=== PATIENT | male | born 1985 | race American Indian/Alaskan Native ===

== ENCOUNTER 2019-10-16 10:26 | Emergency (ER) | payer SELFPAY ==
[~2019-10-16] VITALS: Ht 167.6 cm; Wt 70.3 kg
[2019-10-16 10:29] VITALS: BP 140/90
--- NOTE | 2019-10-16 10:29 | NUR ---
Patient ambulated to bed 7. RN evaluating patient at bedside.
--- NOTE | 2019-10-16 10:37 | NUR ---
PT C/O PENILE DISCHARGE X2 DAY WITH DISCOMFORT AND BURNING SENSATION OF URINATION. DENIES SICK CONTACT WITH COVID PT. PATIENT STATES PAIN OF 0/10 AT THIS TIME; VSS; PATIENT POSITIONED FOR COMFORT; HOB ELEVATED; BEDRAILS UP X1; BED DOWN. ER MD MADE AWARE OF PT STATUS.
[2019-10-16] MEDS ORDERED: cefTRIAXone 250 MG in LIDOCAINE MPF 1% 0.9 ML IM ONE (11:00)
[2019-10-16] MEDS ORDERED: AZITHROMYCIN 250 MG TAB PO ONE (11:00)
[2019-10-16] MEDS ORDERED: LIDOCAINE MPF 1% 5 ML ONE (11:05)
[2019-10-16] MEDS ORDERED: cefTRIAXone 250 MG VIAL ONE (11:05)
[2019-10-16 11:35] VITALS: BP 122/78
--- NOTE | 2019-10-16 11:35 | NUR ---
Patient discharged with v/s stable. Written and verbal after care instructions given and explained. Patient verbalized understanding. Ambulatory with steady gait. All questions addressed prior to discharge. Advised to follow up with PMD.
[2019-10-18 06:07] LABS: CHLAMYDIA TRACHOMATIS AMP DNA Negative (Negative)
--- NOTE | 2019-10-18 20:50 | NUR ---
PT POSITIVE GONORRHOEAE RESULTS-SENT TO INFECTION CONTROL AND HOUSE SUP
== END 2019-10-16 11:35 | disposition home or self-care (01) ==
LOC: MED 10:26
DX: R36.9 Urethral discharge, unspecified (principal); R03.0 Elevated blood-pressure reading, without diagnosis of hypertension; Z11.3 Encounter for screening for infections with a predominantly sexual mode of transmission
CPT/HCPCS: 36415; 81002; 87491; 96372; 99283; J0696; J2001

== ENCOUNTER 2023-01-14 15:44 | Emergency (ER) | payer OTHER ==
[~2023-01-14] VITALS: Ht 167.6 cm; Wt 77.7 kg
[2023-01-14 16:07] VITALS: BP 148/78; PULSE 110; RESP 18; TEMP 97.7; O2SAT 97
[2023-01-14 17:28] LABS: BILIRUBIN,URINE NEGATIVE (NEGATIVE); BLOOD, URINE NEGATIVE (NEGATIVE); COLOR,URINE YELLOW (YELLOW); LEUKOCYTE ESTERASE ,URINE 1+ (NEGATIVE); NITRITE, URINE NEGATIVE (NEGATIVE); PH,URINE 6.5 (5.0-9.0); PROTEIN,URINE NEGATIVE (NEGATIVE); UGLUCOSE NEGATIVE (NEGATIVE)
[2023-01-14 17:30] LABS: APPEARANCE,URINE CLEAR (CLEAR)
[2023-01-14 17:42] LABS: BACTERIA,URINE FEW /HPF (None Seen); RBC,URINE 0-5 /HPF (0-5); SQUAMOUS EPITHELIAL CELL,UR 0-3 (FEW) /LPF (0-3 (FEW))
[2023-01-14] MEDS ORDERED: DOXYCYCLINE 100 MG CAP PO ONE (17:50)
[2023-01-14] MEDS ORDERED: DOXY-690 PO (17:50)
[2023-01-14] MEDS ORDERED: cefTRIAXone 500 MG in LIDOCAINE MPF 1% 1 ML IM ONE (17:50)
[2023-01-14] MEDS ORDERED: cefTRIAXone 500 MG VIAL ONE (17:59)
[2023-01-14] MEDS ORDERED: LIDOCAINE MPF 1% 5 ML ONE (17:59)
[2023-01-14 18:06] VITALS: BP 133/78; PULSE 90; RESP 18; TEMP 97.7; O2SAT 97
[2023-01-15 10:12] LABS: NEISSERIA GONORRHOEAE PCR Detected (NOTdetected)
== END 2023-01-14 18:06 | disposition home or self-care (01) ==
LOC: MED 15:44
DX: N34.2 Other urethritis (principal); Z79.2 Long term (current) use of antibiotics
CPT/HCPCS: 81001; 87086; 87491; 96372; 99283; J0696; J2001